=== PATIENT | male | born 1965 | race Caucasian/White ===

== ENCOUNTER 2022-05-04 05:56 | Inpatient (IN) ==
[2022-05-04] MEDS ORDERED: Acetaminophen 325 MG TABLET PO PRN (10:31)
[2022-05-04] MEDS ORDERED: Ondansetron 4 MG/2 ML VIAL IVP PRN (10:31)
[2022-05-04] MEDS ORDERED: Melatonin 3 MG TABLET PO PRN (10:31)
[2022-05-04] MEDS ORDERED: Albuterol Neb 0.63 MG/3 ML VIAL IH PRN (10:36)
[2022-05-04] MEDS ORDERED: Ringers Solution, Lactated 1,000 ML IVC SCH (10:45)
[2022-05-04] MEDS ORDERED: Ringers Solution, Lactated 1,000 ML IVC ONE (11:30)
[2022-05-04] MEDS: Ketorolac 30 MG/ML VIAL IVP PRN ×2 (12:14→21:13)
[2022-05-04] MEDS: Ringers Solution, Lactated 1,000 ML IVC SCH ×2 (12:15→22:13)
[2022-05-04] MEDS ORDERED: traZODone 50 MG TABLET PO PRN (12:56)
[2022-05-04] MEDS ORDERED: Nicotine 2 MG GUM BC PRN (15:16)
[2022-05-04] MEDS: Budesonide/Formoterol 160/4.5 1 PUFF INH IH SCH ×2 (16:25→20:03)
[2022-05-04] MEDS: Tiotropium 10 INH DOSE IH SCH (16:25)
[2022-05-04] MEDS: Nicotine 21 MG PATCH.TD24 TD SCH (17:24)
[2022-05-05 03:06] LABS: INR 1.1; Prothrombin Time 12.4 Seconds (9.4-12.1)
[2022-05-05 03:19] LABS: Alanine Aminotransferase 302 Units/L (7-52); Albumin 3.5 g/dL (3.5-5.7); Albumin/Globulin Ratio 1.5 (1.1-2.2); Alkaline Phosphatase 257 Units/L (34-104); Aspartate Amino Transferase 128 Units/L (13-39); BUN/Creatinine Ratio 12 (6-26); Bilirubin,Direct 5.9 mg/dL (0.0-0.2); Bilirubin,Indirect 3.1 mg/dL (0.0-1.0); Blood Urea Nitrogen 11 mg/dL (6-20); Calcium 8.3 mg/dL (8.6-10.3); Carbon Dioxide 21 mEq/L (23-29); Chloride 107 mEq/L (98-107); Globulin 2.3 g/dL (2.4-3.5); Glucose 123 mg/dL (70-105); Magnesium 1.6 mg/dL (1.6-2.6); Osmolality,Calculated 285 (280-300); Phosphorous 3.1 mg/dL (2.7-4.5); Potassium 3.9 mEq/L (3.5-5.1); Sodium 137 mEq/L (136-145); Total Protein 5.8 g/dL (6.4-8.9)
[2022-05-05] MEDS: Ringers Solution, Lactated 1,000 ML IVC SCH ×2 (04:50→10:16)
[2022-05-05] MEDS: Ketorolac 30 MG/ML VIAL IVP PRN ×4 (04:51→21:23)
[2022-05-05] MEDS: Tiotropium 10 INH DOSE IH SCH (07:34)
[2022-05-05] MEDS: Budesonide/Formoterol 160/4.5 1 PUFF INH IH SCH ×2 (07:35→19:55)
[2022-05-05] MEDS: Nicotine 21 MG PATCH.TD24 TD SCH (07:41)
[2022-05-05] MEDS ORDERED: *HR* FentaNYL (PF) 100 MCG/2 ML VIAL ONE ×2 (10:59→12:17)
[2022-05-05] MEDS ORDERED: *HR* Propofol 200 MG/20 ML VIAL IVP ONE (10:59)
[2022-05-05] MEDS ORDERED: *HR* Midazolam HCl 2 MG/2 ML VIAL ONE (10:59)
[2022-05-05] MEDS ORDERED: *HR* Rocuronium Bromide 50 MG/5 ML VIAL ONE (11:00)
[2022-05-05] MEDS ORDERED: Ondansetron 4 MG/2 ML VIAL ONE (11:00)
[2022-05-05] MEDS ORDERED: Lidocaine -MPF 2% 5 ML VIAL ONE (11:00)
[2022-05-05] MEDS ORDERED: Lidocaine HCL 4 ML Topical Solution (Laryng-O-Jet Kit Sterile Pak) TP ONE (11:01)
[2022-05-05] MEDS ORDERED: Indomethacin 50 MG SUPP.RECT RC ONE ×2 (13:19→13:30)
[2022-05-06] MEDS ORDERED: *HR* OxyCODONE Immed Rel 5 MG TABLET PO ONE (01:51)
[2022-05-06] MEDS: Ketorolac 30 MG/ML VIAL IVP PRN (03:17)
[2022-05-06] MEDS: Tiotropium 10 INH DOSE IH SCH (07:54)
[2022-05-06] MEDS: Budesonide/Formoterol 160/4.5 1 PUFF INH IH SCH ×2 (07:55→20:28)
[2022-05-06] MEDS ORDERED: Morphine Sulfate 2 MG/ML SYRINGE IVP PRN (08:27)
[2022-05-06] MEDS: Nicotine 21 MG PATCH.TD24 TD SCH (09:01)
[2022-05-06] MEDS ORDERED: Iopamidol - 370 500 ML MLS IVP ONE (13:37)
[2022-05-06] MEDS ORDERED: Ketorolac 30 MG/ML VIAL IVP PRN (13:51)
[2022-05-06] MEDS: Morphine Sulfate 2 MG/ML SYRINGE IVP PRN ×3 (14:35→23:43)
[2022-05-07] MEDS: Morphine Sulfate 2 MG/ML SYRINGE IVP PRN ×2 (03:40→07:59)
[2022-05-07 07:16] VITALS: BP 110/73; PULSE 93; TEMP 98.3; O2SAT 94
[2022-05-07] MEDS: Budesonide/Formoterol 160/4.5 1 PUFF INH IH SCH (07:49)
[2022-05-07] MEDS: Tiotropium 10 INH DOSE IH SCH (07:49)
[2022-05-07] MEDS: Nicotine 21 MG PATCH.TD24 TD SCH (07:59)
[2022-05-07] MEDS ORDERED: Gadolinium Contrast Agent (WT Based) IV PRN (09:36)
[2022-05-07] MEDS ORDERED: GADOBUTROL 30 MMOL/30 ML VIAL IVP ONE (10:06)
== END 2022-05-07 14:38 | disposition home or self-care (01) | DRG 282 ==
LOC: 2ANU → SUATTDRO 12:04
PROVIDERS: ADMIT Internal Medicine; ATTEND Internal Medicine
PROC: ENDOEUS (2022-05-05 13:00)